=== PATIENT | male | born 1995 | race Two or more races ===

== ENCOUNTER 2018-02-24 10:07 | Emergency (ER) | payer MEDICAID ==
[2018-02-24 10:26] LABS: PLATELET COUNT 171 10^3/uL (150-400)
[2018-02-24] MEDS ORDERED: NS 1,000 ML IV ONE ×2 (10:30→11:19)
[2018-02-24] MEDS ORDERED: IOPAMIDOL (ISOVUE 370) 100 ML BTL IV ONE (10:34)
--- NOTE | 2018-02-24 10:38 | EDPHY ---
General Time Seen by Provider: 02/24/18 10:15 Narrative: CHIEF COMPLAINT: Chest pain HISTORY OF PRESENT ILLNESS: Patient presents by EMS and is seen at time of arrival. He complains of chest pain. This was retrosternal starting approximately 20 min ago. He says it was severe enough that it dropped him to his knees. Bystanders report that he was pale and diaphoretic. He says he had no shortness of breath. He had no exertional pain radiating pain. No extremity erythema edema or pain. No recent travel, trauma or surgery. No history of venous thrombolic event or cardiac abnormalities. At time of examination he is completely resolved. He has no complaints of any kind at this time. No modifying factors. REVIEW OF SYSTEMS: 10 systems were reviewed and negative with the exception of the elements mentioned in the history of present illness. PCP: Gabino Jorgensen SPECIALISTS: None PAST MEDICAL HISTORY: Uncomplicated. PAST SURGICAL HISTORY: No surgical history SOCIAL HISTORY: Nonsmoker. Lives independently. Works in [employer] FAMILY HISTORY: Noncontributory EXAMINATION: General Appearance: Alert, no distress Head: normocephalic, atraumatic Eyes: Pupils equal and round, no conjunctival pallor or injection ENT, Mouth: Mucous membranes moist Neck: Normal inspection, supple, non-tender Respiratory: Lungs are clear to auscultation Cardiovascular: Regular rate and rhythm. No murmur. Good signs of perfusion distally with symmetric radial pulses 2+ and symmetric DP pulses 2+. Gastrointestinal: Abdomen is soft and nontender Back: non-tender, no bony abnormalities Neurological: A&O, nonfocal, normal gait Skin: Warm and dry, no rash. Grossly intact with no diaphoresis. Extremities: Nontender, no pedal edema Psychiatric: Mood and affect normal DIFFERENTIAL DIAGNOSES: Including but not limited to ACS, esophagitis, orthostasis, near-syncope, CP PE , dissection MDM: 10:15 a.m. Retrosternal chest pain that is resolved. He was reportedly diaphoretic, pale and near syncopal. There was no loss of conscious. No seizure-like activity. He is now pain-free at this time. I have ordered orthostatics, troponin, clinical exercise specialist, EKG and laboratory studies. 10:30 a.m. Case discussed with Dr. Rowe. I have also reviewed the EKG with him. He recommends CT angiography of the chest rule out dissection. He is resting comfortably. Pain-free. He is on a clinical exercise specialist laboratory studies pending. He is orthostatic vital signs are positive, thus we will continue IV fluid resuscitation. 12:[address] Pollard. [address] scan of the chest unremarkable for any findings. 12:30 p.m. Patient re-evaluated. He has received 2 L IV fluid. He is ambulatory without difficulties or any symptoms. He has no complaints of any kind. I do feel he is stable for discharge home. Follow up with primary care physician. His mother is not bedside. I have answered their questions and he is discharged home stable condition. SUPERVISION: Patient was independently examined, but I discussed the case with my secondary supervising physician Dr. Rowe CONSULTATION: None - Diagnostics Imaging Results: Imaging Impressions Chest X-Ray 02/24/18 10:15 Impression: Normal. Chest/Thorax CTA 02/24/18 10:30 Impression: No visible pulmonary embolus. Findings discussed with Jimi PAC Brooks 02/24/2018 at 12:15. - Objective Vital Signs: Initial Vital Signs Heart Rate 56 L 02/24/18 10:15 Blood Pressure 126/70 H 02/24/18 10:15 O2 Delivery Mode Room Air Allergies/Adverse Reactions: No Known Allergies Allergy (Unverified 02/24/18 10:16) Home Medications: Medication Instructions Recorded NK [No Known Home Meds] 02/24/18 Laboratory Results: Laboratory Results 02/24/18 10:00 02/24/18 10:00 02/24/18 02/24/18 02/24/18 10:16 10:00 10:00 WBC 11.49 10^3/uL H 10^3/uL (3.80-9.50) RBC 5.78 10^6/uL 10^6/uL (4.40-6.38) Hgb 18.0 g/dL H g/dL (13.7-17.5) Hct 51.3 % H % (40.0-51.0) MCV 88.8 fL fL (81.5-99.8) MCH 31.1 pg pg (27.9-34.1) MCHC 35.1 g/dL g/dL (32.4-36.7) RDW 12.3 % % (11.5-15.2) Plt Count 171 10^3/uL 10^3/uL (150-400) MPV 10.4 fL fL (8.7-11.7) Neut % (Auto) 60.6 % % (39.3-74.2) Lymph % (Auto) 31.6 % % (15.0-45.0) Dickenson % (Auto) 5.5 % % (4.5-13.0) Eos % (Auto) 1.7 % % (0.6-7.6) Baso % (Auto) 0.3 % % (0.3-1.7) Nucleat RBC Rel Count 0.0 % % (0.0-0.2) Absolute Neuts (auto) 6.98 10^3/uL H 10^3/uL (1.70-6.50) Absolute Lymphs (auto) 3.63 10^3/uL H 10^3/uL (1.00-3.00) Absolute Monos (auto) 0.63 10^3/uL 10^3/uL (0.30-0.80) Absolute Eos (auto) 0.19 10^3/uL 10^3/uL (0.03-0.40) Absolute Basos (auto) 0.03 10^3/uL 10^3/uL (0.02-0.10) Absolute Nucleated RBC 0.00 10^3/uL 10^3/uL (0-0.01) Immature Gran % 0.3 % % (0.0-1.1) Immature Gran # 0.03 10^3/uL 10^3/uL (0.00-0.10) Sodium 142 mEq/L mEq/L (135-145) Potassium 4.5 mEq/L mEq/L (3.3-5.0) Chloride 105 mEq/L mEq/L (97-110) Carbon Dioxide 28 mEq/l mEq/l (22-31) Anion Gap 9 mEq/L mEq/L (8-16) BUN 15 mg/dL mg/dL (7-23) Creatinine 0.9 mg/dL mg/dL (0.7-1.3) Estimated GFR > 60 Glucose 96 mg/dL mg/dL (70-100) Calcium 10.4 mg/dL mg/dL (8.5-10.4) POC Troponin I 0.00 ng/mL ng/mL (0.00-0.08) Lipase 92 IU/L IU/L (23-300) Medications Given: Discontinued Medications Sodium Chloride (Ns) 1,000 mls @ 0 mls/hr IV EDNOW ONE; Wide Open PRN Reason: Protocol Stop: 02/24/18 10:31 Last Admin: 02/24/18 10:33 Dose: 1,000 mls Sodium Chloride (Ns) 1,000 mls @ 0 mls/hr IV EDNOW ONE; Wide Open PRN Reason: Protocol Stop: 02/24/18 11:20 Last Admin: 02/24/18 11:51 Dose: 1,000 mls Point of Care Test Results: Chemistry 02/24/18 10:16 POC Troponin I 0.00 ng/mL ng/mL (0.00-0.08) Departure - Departure Disposition: Home, Routine, Self-Care Clinical Impression: Orthostasis, Dehydration, moderate, Acute chest pain Condition: Good Instructions: Chest Pain (ED), Dehydration (ED), Syncope (ED) Additional Instructions: 1. Increase fluid intake the next few days 2. Contact primary care physician for further workup palpation 3. Return to emergency department for any return of symptoms, exertional chest pain, loss of consciousness Referrals: G[facility]INO JORGENSEN,. [Clinic] - As per Instructions Stand Alone Forms: Work Limited Duty
[2018-02-24 12:21] VITALS: BP 116/67
--- NOTE | 2018-02-26 19:30 | CPEKG ---
Test Reason : OPEN Blood Pressure : / mmHG Vent. Rate : 059 BPM Atrial Rate : 058 BPM P-R Int : 152 ms QRS Dur : 099 ms QT Int : 421 ms P-R-T Axes : 002 051 021 degrees QTc Int : [address] elev, probable normal early repol pattern Confirmed by Onelia Rios ([id number]) on 02/26/2018 7:29:39 PM Referred By: Confirmed By:Onelia Rios
== END 2018-02-24 12:42 | disposition home or self-care (01) ==
DX: R07.9 Chest pain, unspecified (principal); R55 Syncope and collapse; E86.9 Volume depletion, unspecified
CPT/HCPCS: 84484-PO; Q9967